=== PATIENT | male | born 1995 | race Caucasian/White ===

== ENCOUNTER 2018-05-25 04:37 | Emergency (ER) | payer OTHER ==
[~2018-05-25] VITALS: Ht 188 cm; Wt 65.8 kg
[~2018-05-25 04:37] MED LIST: BENTYL10 MG PO; MOTRIN800 MG PO; NAPROSYN500 MG PO; ZOFRAN4 MG PO
[2018-05-25] MEDS ORDERED: MOTRIN400 MG PO (06:35)
[2018-05-25 06:54] VITALS: BP 134/87
== END 2018-05-25 06:57 | disposition home or self-care (01) ==
LOC: EME 04:37
DX: S50.02XA Contusion of left elbow, initial encounter (principal); S80.02XA Contusion of left knee, initial encounter; S90.02XA Contusion of left ankle, initial encounter; W20.8XXA Other cause of strike by thrown, projected or falling object, initial encounter; Y99.0 Civilian activity done for income or pay; F17.200 Nicotine dependence, unspecified, uncomplicated
CPT/HCPCS: 73080; 73610; 73630; 99281; 99283